=== PATIENT | male | born 1990 | race Caucasian/White ===

== ENCOUNTER → 2016-10-25 13:06 | Emergency (ER) | payer SELFPAY ==
[~2016-10-25 13:06] MED LIST: PPD test dose* 5 TU/0.1 ML TEST (*USE PPD ORDER SET*) ONE
== END | disposition home or self-care (01) ==
LOC: OHCORT 13:06
DX: Z11.1 Encounter for screening for respiratory tuberculosis (principal)

== ENCOUNTER 2017-09-26 20:42 | Emergency (ER) | payer OTHER ==
[2017-09-26 21:04] VITALS: BP 136/78
--- NOTE | 2017-09-26 21:17 | UC ---
FLU HPI - HPI Summary HPI Summary: 26 y/o male presents to the urgent care c/o fever, MAY, nasal congestion, dry cough, chills, body aches since yesterday. Pt reports his son Dx w/ Influenza here at the clinic 1 week ago. Pt denies SOB, chest pain, wheezing, abdominal pain, N/V/D. Pt has taking Tylenol to alleviate symptoms. - History of Current Complaint Chief Complaint: UCRespiratory Stated Complaint: FLU SYMPTOMS Time Seen by Provider: 09/26/17 21:15 Hx Obtained From: Patient Onset/Duration: Gradual Onset, Lasting Days - 1 day, Still Present, Worse Since - today Severity Currently: Moderate Severity Initially: Mild Pain Intensity: 4 Pain Scale Used: 0-10 Numeric Associated Signs & Symptoms: Positive: Fever, Myalgia, Cough, Nasal Congestion, Headache Related Hx: Possible Flu/Infectious Exposure - Risk Factors Influenza Risk Factors: Negative - Allergy/Home Medications Allergies/Adverse Reactions: Allergies Allergy/AdvReac Type Severity Reaction Status Date / Time No Known Allergies Allergy Verified 09/26/17 21:04 Home Medications: Home Medications Gabapentin 300 mg PO TID 09/26/17 [History Confirmed 09/26/17] Methocarbamol TAB* [Robaxin 500 MG TAB*] 500 mg PO TID PRN 09/26/17 [History Confirmed 09/26/17] Naproxen [Naproxen 500 mg] 500 mg PO Q8H PRN 09/26/17 [History Confirmed ] PMH/Surg Hx/FS Hx/Imm Hx Previously Healthy: Yes - Pt denies PMHX - Surgical History Surgical History: Yes Surgery Procedure, Year, and Place: hernia repair - Family History Known Family History: Positive: None - Pt denies FMHX - Social History Occupation: Employed Full-time Lives: With Family Alcohol Use: Rare Substance Use Type: None Smoking Status (MU): Never Smoked Tobacco Review of Systems Constitutional: Fever, Chills, Fatigue, Other - body aches Skin: Negative Eyes: Negative ENT: Nasal Discharge, Sinus Congestion Respiratory: Cough Cardiovascular: Negative Gastrointestinal: Negative Genitourinary: Negative Motor: Negative Neurovascular: Negative Musculoskeletal: Negative Neurological: Headache Psychological: Negative Is Patient Immunocompromised?: No All Other Systems Reviewed And Are Negative: Yes Physical Exam Triage Information Reviewed: Yes Vital Signs: Initial Vital Signs Temp 100.6 F 09/26/17 21:02 Pulse 95 09/26/17 21:02 Resp 18 09/26/17 21:02 BP 136/78 09/26/17 21:02 Pulse Ox 95 09/26/17 21:02 - Additional Comments VITAL SIGNS: Reviewed. GENERAL: Patient is a well developed and nourished male who is sitting comfortable in the examining table. Patient is not in any acute respiratory distress. HEAD AND FACE: No signs of trauma. No ecchymosis, hematomas or skull depressions. No sinus tenderness. edematous erythematous nasal mucosa with yellowish discharge, EYES: PERRLA, EOMI x 2, No injected conjunctiva, clear watery eyes, no nystagmus. No photophobia. EARS: Hearing grossly intact. Ear canals and tympanic membranes are within normal limits. MOUTH: Positive pharynx with erythema, no exudates,no palatal petechiae. no B/L tonsillar enlargement Uvula in midline. NECK: Supple, trachea is midline, Positive anterior cervical lymphadenopathy, no JVD, no carotid bruit, no c-spine tenderness, neck with full ROM. No meningeal signs, no Kernig's or brudzinskis signs. CHEST: Symmetric, no tenderness at palpation LUNGS: Clear to auscultation bilaterally. No wheezing or crackles. CVS: Regular rate and rhythm, S1 and S2 present, no murmurs or gallops appreciated. ABDOMEN: Soft, non-tender. No signs of distention. No rebound no guarding, and no masses palpated. Bowel sounds are normal. EXTREMITIES: FROM in all major joints, no edema, no cyanosis or clubbing. NEURO: Alert and oriented x 3. No acute neurological deficits. Speech is normal and follows commands. SKIN: Dry and warm Flu Course/Dx - Course Course Of Treatment: 26 y/o male presents to the urgent care c/o fever, MAY, nasal congestion, dry cough, chills, body aches since yesterday. Pt reports his son Dx w/ Influenza here at the clinic 1 week ago. Pt denies SOB, chest pain, wheezing, abdominal pain, N/V/D. Pt has taking Tylenol to alleviate symptoms. Hx obtained. Pt febrile w/ URI on examination. O2Sat: 95%. Influenza A&B ordered: result:negative. Pt w/ a viral syndrome. Exposure to influenza. Pt Rx Tamiflu and ibuprofen PO to alleviates symptoms. Advised on hand washing and wear a mask to avoid spreading. Pt advised to rest, increase fluid intake, eat well and avoid strenuous exercise. If symptoms do not improve or worsen advised to return to the urgent care or f/u with her PCP for further evaluation and treatment. Pt understood and agreed with plan of care. - Differential Dx/Diagnosis Differential Diagnosis/HQI/PQRI: Bronchitis, Influenza, Pneumonia, Upper Respiratory Infection Provider Diagnoses: 1-Viral syndrome. 2-Fever Discharge - Discharge Plan Condition: Stable Disposition: HOME Prescriptions: Ibuprofen TAB* [Motrin TAB* 800 MG] 800 mg PO Q6H PRN #20 tab PRN Reason: Fever Oseltamivir CAP* [Tamiflu CAP*] 75 mg PO BID #9 cap Patient Education Materials: Viral Syndrome (ED) Forms: *Work Release Referrals: [facility] [place] [place] [facility] [Outside] - 3 Days Additional Instructions: 1- Please take the full course of the antiviral to avoid resistance. Encourage hand washing and wear a mask to avoid spreading. 2-Please take Ibuprofen PO q6-8hrs prn as instructed after meals to alleviate fever, and sore throat. Increase fluid intake, eat well, rest and avoid strenuous exercise 3-If symptoms do not improve or worsen please return to the urgent care or f/u with your PCP in 2-3 days for further evaluation and treatment.
[2017-09-26] MEDS ORDERED: Oseltamivir CAP* 75 MG CAP PO ONE (21:29)
== END 2017-09-26 21:40 | disposition home or self-care (01) ==
LOC: UCCORT 20:42
DX: B34.9 Viral infection, unspecified (principal); R50.9 Fever, unspecified
CPT/HCPCS: 87502; 99212; A9270-GY; G0463